=== PATIENT | female | born 1955 | race Caucasian/White ===

== ENCOUNTER → 2018-01-06 14:17 | Outpatient (CLI) | payer OTHER, SELFPAY ==
--- NOTE | 2018-01-06 15:15 | NEURO ---
NCS and/or EMG Patient Report Ordering Doctor: Joo Watkins DATE OF SERVICE: 01/06/18 Shila Braga is a 62-year-old female presents for electrodiagnostic dusting of the right upper limb. She has chief complaint of numbness and tingling in the right hand. [place] diagnostic findings: Right median motor nerve demonstrates prolonged distal latency with normal amplitude and conduction velocity. Normal right ulnar motor response normal median and ulnar f wave. Prolonged right median sensory latency at the wrist. Prolonged right median palmar latency. On needle EMG, all muscles tested in the right upper limb show no evidence of denervation with normal motor unit action potentials. Electrodiagnostic assessment: This is a abnormal study 1. Electrodiagnostic findings demonstrate right-sided median mononeuropathy. This is consistent with a moderate right carpal tunnel syndrome. If there are any further questions, please not hesitate to contact me
== END ==
PROVIDERS: Family Provider Family Medicine; PCP Family Medicine; Visit Provider Physician Assistant
DX: R20.2 Paresthesia of skin (principal)
CPT/HCPCS: 95886; 95909

== ENCOUNTER 2018-01-27 11:30 | Outpatient (RCR) | payer OTHER, SELFPAY ==
--- NOTE | 2018-01-20 10:46 | HP.OTEVAL_ITS ---
Patient's Visit Information BEV BOLAÑOS is a 62 year old F, referred to Occupational Therapy by Grabiel Lloyd, with a diagnosis of Right CTS. Date of Evaluation: 01/20/18 Occupational Therapist: Aleshia Jimenez, MORGAN/Johan, CHT - Subjective Subjective: PT attends OT eval with dx of right CTS. pt states symptoms of pain and numbness has come and gone for about 8 years. PT states she is now wearing a brace at night. pt is employed in [employer] and is in front of the computer most of the time. Pt states dr. lawton put her on a anti-inflamitory medication for about a week . Pt has had a nerve conduction test result with mild CTS. - Pain right wrist 4 Pain Intensity Range: 0, 4 - ROM Elbow: Right/ left WNL Forearm: right/left WNL Wrist: right 65/65 left 65 60 - Strength Manufacturing Sales Representative: right 45# left 40# Lateral Pinch: right 8# left 8# Tripod Pinch: right 6# left 6# - Special Tests Phalen's (Carpal Tunnel): positive - Carpal Tunnel Syndrome Total Score of Symptom & Functional Sections: 24 - Goals Goal:: pt will report pain no greater than 1/10 with use of right UE with BADLs and IADLS by d/c Goal:: pt will demo understanding of work station ergo. and make two changes to her work station to decrease symptoms of CTS to less than 1 flair up a week by d /c Goal:: pt will demo the ability to demo good sitting posture for greater than 30 min by d/c - Rehabilitation General Assessment: pt demo with positive right CTS. pts pain and symptoms of tingling/numbness limit pts ability to sleep at night and hold/lift objects. pt demo need for skilled OT services 1x week for 3 weeks to ed. on Median N glides , posture and work station ergo and strengthen UB. Rehabilitation Potential: Excellent - Anticipated Interventions Anticipated Interventions: Strengthening, Triggerpoint Release, Modalities, Orthoses, Ergonomic Education - Visit Plan Frequency: 1x/Week Duration: 3 Weeks General Plan: review Median N glide- posture ex. initiate t-band row ex to increase posture support. review work station erg. and use of wrist brace. TEXT: Thank you for the opportunity to evaluate your patient. For Medicare and Medicare HMO plans, please review the plan of care and approve it. It will need to be FAXED BACK to us at [phone] for Medicare purposes. Please let me know if there are questions or concerns regarding this plan of care. Physician Signature: Date:
--- NOTE | 2018-01-27 11:52 | HP.OTDCSUM_ITS ---
HP - OT D/C Summary It has been my pleasure to treat BEV BOLAÑOS under orders from Grabiel Lloyd, for the diagnosis of Right CTS for a total of 2 visit(s). Please see the following information for a summary of their discharge status. - Overall Improvement % Improvement: 80 - Objective Objective/Function: pt demo understanding of posture and relation to CTS, pt demo median N. glide, use of wrist braces and T-band scapular strengthening. - Goals Patient Goals: Regain Strength, Use Hand/Wrist/Arm Normally Again, Sleep Better , Decrease Tingling/Numbness, Be More Independent in ADLS Goal:: pt will report pain no greater than 1/10 with use of right UE with BADLs and IADLS by d/c Goal:: pt will demo understanding of work station ergo. and make two changes to her work station to decrease symptoms of CTS to less than 1 flair up a week by d /c Goal:: pt will demo the ability to demo good sitting posture for greater than 30 min by d/c - Plan Plan: D/C with HEP - D/C Information Discharge Comments: pt was seen for 2 OT sessions. pts use of her wrist brace has decreased her CTS and pain. pt demo understanding of posture and work station ergo. pt also demo understanding of PRE with t-band for scapula strengthening. pt agree with POC with HEP. pt d/c at this time. If there are questions or concerns regarding this patient's occupational therapy , please fell free to call me at [phone]. Thank you for the referral of this patient. Sincerely, Aleshia Jimenez, OTR/L, CHT
== END 2018-01-27 19:00 | disposition home or self-care (01) ==
LOC: OT 11:30
PROVIDERS: Family Provider Family Medicine; PCP Family Medicine; Visit Provider Orthopaedic Surgery
DX: G56.01 Carpal tunnel syndrome, right upper limb (principal)
CPT/HCPCS: 97110; 97166

== ENCOUNTER → 2021-02-05 16:51 | Outpatient (CLI) | payer OTHER, SELFPAY ==
[2021-02-05 17:58] LABS: Hematocrit 41.4 % (37-47); Hemoglobin 14.2 g/dL (12.0-15.0); Mean Corp Hgb Conc 34.3 g/dL (32-36); Mean Corpuscular Hgb 29.7 pg (27.0-32.0); Mean Corpuscular Volume 86.6 fL (81-99); Mean Platelet Vol. 12.7 fl (6.2-12.0); Platelet Count 228 K/mm3 (150-450); RBC Distribution Width CV 12.2 % (11.6-14.6); RBC Distribution Width SD 38.8 fl (35.1-43.9); Red Blood Count 4.78 M/mm3 (4.2-5.4); White Blood Count 7.6 K/mm3 (4.4-11.0)
[2021-02-05 18:23] LABS: Anion Gap 8 (5-15); BUN 21 mg/dL (7-18); BUN/Creat Ratio 31.9 RATIO (10-20); Calcium,Total 9.4 mg/dL (8.5-10.1); Chloride 104 mmol/L (98-107); Cholesterol 253 mg/dL (200); Creatinine, Serum 0.66 mg/dL (0.55-1.02); EST Glomerular Filtration Rate 96 mL/min (>60); Est Glom Filt Rate - Afr Amer 116 mL/min (>60); Glucose 128 mg/dL (74-106); High Density Lipoprotein 44 mg/dL; Potassium 3.6 mmol/L (3.5-5.1); Sodium Level 137 mmol/L (136-145); Thyroid Stim Hormone (TSH) 1.52 uIU/mL (0.358-3.74); Triglycerides 310 mg/dL; Very Low Density Lipoprotein 62 mg/dL (5-40)
[2021-02-05 18:32] LABS: Microalbumin,Random Urine 22.2 mg/L (NO RANGE EST.)
== END ==
PROVIDERS: PCP Family Medicine; Referring Provider Family Medicine; Visit Provider Family Medicine
DX: E11.9 Type 2 diabetes mellitus without complications (principal)
CPT/HCPCS: 36415; 80048; 80061; 82043; 84443; 85027

== ENCOUNTER 2021-06-19 08:42 | Outpatient (CLI) | payer OTHER, SELFPAY ==
[2021-06-19 11:03] LABS: ALB/GLOB Ratio 0.8 RATIO (0.9-2.4); AST(SGOT) 34 U/L (15-37); Alanine Aminotransfer ALT/SGPT 60 U/L (13-56); Albumin, Serum 3.8 g/dL (3.2-5.0); Alkaline Phosphatase 102 U/L (45-117); Anion Gap 9 (5-15); BUN 15 mg/dL (7-18); BUN/Creat Ratio 18.3 RATIO (10-20); Calcium,Total 10.1 mg/dL (8.5-10.1); Chloride 106 mmol/L (98-107); Cholesterol 152 mg/dL (200); Creatinine, Serum 0.82 mg/dL (0.55-1.02); EST Glomerular Filtration Rate 75 mL/min (>60); Est Glom Filt Rate - Afr Amer 90 mL/min (>60); Globulin 4.6 g/dL (2.2-4.2); Glucose 120 mg/dL (74-106); High Density Lipoprotein 49 mg/dL; Potassium 4.2 mmol/L (3.5-5.1); Protein, Total 8.4 g/dL (6.4-8.2); Sodium Level 138 mmol/L (136-145); Triglycerides 156 mg/dL; Very Low Density Lipoprotein 31 mg/dL (5-40)
== END 2021-06-19 23:59 | disposition short-term general hospital (02) ==
LOC: MTLAB 08:43
PROVIDERS: PCP Family Medicine; Referring Provider Family Medicine; Visit Provider Family Medicine
DX: E11.9 Type 2 diabetes mellitus without complications (principal)
CPT/HCPCS: 36415; 80053; 80061

== ENCOUNTER 2021-07-22 07:41 | Day surgery (SDC) | payer OTHER, SELFPAY ==
[2021-07-04 12:25] LABS: Hematocrit 44.6 % (37-47); Hemoglobin 15.1 g/dL (12.0-15.0); Mean Corp Hgb Conc 33.9 g/dL (32-36); Mean Corpuscular Hgb 30.1 pg (27.0-32.0); Mean Platelet Vol. 12.2 fl (6.2-12.0); Platelet Count 235 K/mm3 (150-450); RBC Distribution Width CV 12.1 % (11.6-14.6); RBC Distribution Width SD 39.1 fl (35.1-43.9); Red Blood Count 5.01 M/mm3 (4.2-5.4)
[2021-07-04 12:49] LABS: Anion Gap 8 (5-15); BUN 13 mg/dL (7-18); BUN/Creat Ratio 14.6 RATIO (10-20); Calcium,Total 9.7 mg/dL (8.5-10.1); Chloride 103 mmol/L (98-107); Creatinine, Serum 0.89 mg/dL (0.55-1.02); EST Glomerular Filtration Rate 68 mL/min (>60); Est Glom Filt Rate - Afr Amer 82 mL/min (>60); Glucose 122 mg/dL (74-106); Potassium 4.1 mmol/L (3.5-5.1); Sodium Level 139 mmol/L (136-145)
[2021-07-05 11:00] LABS: Hemoglobin A1c 6.2 % (3.8-5.6)
--- NOTE | 2021-07-11 14:01 | EKG12_ITS ---
Test Reason : PREOP Blood Pressure : / mmHG Vent. Rate : 087 BPM Atrial Rate : 087 BPM P-R Int : 156 ms QRS Dur : 064 ms QT Int : 366 ms P-R-T Axes : 018 -06 066 degrees QTc Int : 440 ms Normal sinus rhythm Normal ECG Confirmed by EVANGELIST SANCHEZ, YANDY ([id number]), research editor CARLOS MORA ([id number]) on 07/12/2021 8:27:55 AM Referred By: Grabiel Lloyd Confirmed By:YANDY BLANCA MD
[2021-07-22 08:41] VITALS: BP 176/97; PULSE 80; RESP 16; TEMP 36.4; O2SAT 100; BMI 27.3
[2021-07-22] MEDS: Lactated Ringers 1,000 ML 15 ML IV (08:49)
[2021-07-22 08:55] LABS: Bedside Glucose 148 mg/dL (70-110)
[2021-07-22] MEDS: Cefazolin 2 GM in 0.9% Normal Saline 100 ML IV (09:45)
[2021-07-22] MEDS: Epinephrine (1 mg/ml) 1 MG/ML VIAL (11:00)
[2021-07-22] MEDS: Lidocaine 1% /Epi 1:100 (50ml) 50 ML VIAL (11:00)
--- NOTE | 2021-07-22 11:21 | OP.PCM_ITS ---
Report of Operation Date of Procedure: 07/22/21 Pre-Operative Diagnosis: SAIS, AC arthrosis, Labral tear and rotator cuff tear left shoulder Post-Operative Diagnosis: same with Type IIa, non-displaced SLAP tear Surgery/Procedure Performed:: Diagnostic and operative arthroscopy left shoulder with JAREK, Richard procedure, intra-articular debridement and rotator cuff repair Surgeon: Grabiel Lloyd at risk specialist: Joo Watkins Type of Anesthesia: General/Regional Anesthesiologist: Mac Fajardo Estimated Blood Loss (mL): 5 cc Fluids Replaced: 1000 cc crystalloid Admit VTE Documentation VTE Present on Admission: No VTE Mechan Device Prophylaxis: SCD's and Thigh High CODIE Hose Reason prophylaxis not ordered:: Treatment Not Indicated
[2021-07-22 11:33] VITALS: BP 139/77; BP 176/97; PULSE 90; RESP 16; TEMP 36.1; O2SAT 93
[2021-07-22 11:45] VITALS: BP 142/72; BP 176/97; PULSE 86; RESP 16; O2SAT 93
[2021-07-22] MEDS: Ketorolac 15 MG/ML Vial IV (11:53)
[2021-07-22 12:00] VITALS: BP 141/76; BP 176/97; PULSE 77; RESP 16; O2SAT 93
[2021-07-22 12:15] VITALS: BP 143/73; BP 176/97; PULSE 77; RESP 16; TEMP 36.4; O2SAT 93
[2021-07-22 12:31] LABS: Bedside Glucose 222 mg/dL (70-110)
[2021-07-22 13:36] VITALS: BP 122/72; BP 176/97; PULSE 72; RESP 16; TEMP 36.2; O2SAT 98
== END 2021-07-22 23:59 | disposition home or self-care (01) ==
LOC: SDC 07:42 → AC 07:42
PROVIDERS: PCP Family Medicine; Referring Provider Orthopaedic Surgery; Visit Provider Orthopaedic Surgery
PROC: (CPT 29827; principal; 2021-07-22 09:10)
DX: S46.012A Strain of muscle(s) and tendon(s) of the rotator cuff of left shoulder, initial encounter (principal); E11.69 Type 2 diabetes mellitus with other specified complication; S43.432A Superior glenoid labrum lesion of left shoulder, initial encounter; M75.102 Unspecified rotator cuff tear or rupture of left shoulder, not specified as traumatic; M19.012 Primary osteoarthritis, left shoulder; Y93.9 Activity, unspecified; Y99.9 Unspecified external cause status; W19.XXXA Unspecified fall, initial encounter; Y92.9 Unspecified place or not applicable; Z79.84 Long term (current) use of oral hypoglycemic drugs; E78.00 Pure hypercholesterolemia, unspecified; Z79.899 Other long term (current) drug therapy
CPT/HCPCS: 29827; 29826; 29824; 01630; 64415; 36415; 80048; 82962; 83036; 85027; 93005; 97161; J7120

== ENCOUNTER 2021-10-24 11:00 | Outpatient (RCR) | payer OTHER, SELFPAY ==
--- NOTE | 2021-07-29 12:08 | HP.PTEVAL ---
Patient's Visit Information BEV BOLAÑOS is a 65 year old F referred to Physical Therapy by Joo Watkins PA-C with a diagnosis of L rotator cuff repair. Date of Evaluation: 07/29/21 Physical Therapist: Oscar Adame, PT, ATC - Visit Plan Frequency: 2-3x /Week Duration: 4-6 Weeks Plan: L shoulder PROM and mobilizations for 4-6 weeks. Will progress to phase 2 at that time. MH and CP for pain - Subjective DOS: 07/22/21. Pt had L rotator cuff repair performed at that time. Pt reports she tripped at home and landed on her L shoulder which resulted in a tear. Pt reports she is still in a lot of pain at this time. Pt reports she is able to sleep at night as long az she sleeps in her recliner and takes pain meds. Pt is R hand dominant. Pt works at the [employer] of the [employer]. Pt reports no tingling or numbness in L UE at this time. Pt denies any PMHx of L shoulder complications prior to this episode. Pt reports she has been performing a HEP of L elbow AROM. Pt reports she was told she would get more ex's when she went to PT. 3/10 pain while sitting her in the clinic at rest with meds, 5/10 pain at worst. - Pain L shoulder Pain Intensity (Out of 10): 3 Pain Intensity Range: 5 - Objective Neuro: B UE sensation is WNL to light touch. B bicepital reflex. Observation: Incisions are healing well. Still covered with gauze. No signs of infection at this time. ROM: R shoulder AROM: flex= 140, abd= 140, ER= 50, IR WNL; L shoulder PROM flex= 50, abd= 50. MMT: R shoulder is 5/5 throughout. L shoulder not assessed today - Balance/Special Test Scores Quick DASH Score: 79.5450 - Goals Goal 1:: Decrease L shoulder pain x 50% to aid with sleep Goal Time Frame: 4-6 Weeks Goal 2:: Increase L shoulder abd and flex ROM x 50 degrees to aid with IADL's Goal Time Frame: 4-6 Weeks Goal 3:: Increase L shoulder strength to 4/5 to aid with return to work without limitation Goal Time Frame: 8-12 Weeks Goal 4:: I with HEP Goal Time Frame: 4-6 Weeks - Rehabilitation Potential Physical Therapy Diagnosis: Pt has L shoulder pain, weakness, and limited ROM secondary to L rotator cuff repair. Rehabilitation Potential: Good - Anticipated Interventions Patient/Client Instruction: Educate patient on: Condition, Plan of Care For the Purpose of:: To improve self management Therapeutic Exercise to Include: Strength training, Flexibilty training, Passive ROM, Active ROM, Scapular Strength/Stabilization For the Purpose of:: To decrease pain, To increase ROM, To improve muscle performance and motor function Cryotherapy (ice pack, ice massage): Yes Thermo therapy (hot pack): Yes For the Purpose of:: To decrease pain Thank you for the opportunity to evaluate your patient. For Medicare and Medicare HMO plans, please review the plan of care and approve it. It will need to be FAXED BACK to us at [phone] for Medicare purposes. For Medicare only, by signing this I certify the plan of care. Please let me know if there are questions or concerns regarding this plan of care. Physician Signature: Date:
--- NOTE | 2021-09-12 11:17 | HP.PTREVAL ---
Joo Watkins PA-C, It has been my pleasure to treat BEV BOLAÑOS over the last 14 visits for L rotator cuff repair. Please see the progress note below for an update on the physical therapy plan of care! Subjective: No pain today. I am really stiff for some reason Objective/Function: L shoulder pain is currently 0/10, 4/10 at worst. L shoulder ROM: flex= 110, abd= 82 degrees. L shoulder MMT: L shoulder is grossly 3-/5 throughout; flex= 3.4, abd= 8.6, ER= 7.2, IR= 9.7 #F. Pt is progressing well towards Rx goals Plan Plan: Begin light isometric ex's per doctors request. Cont with phase 2 ex's focusing on ROM at this time. Begin strengthening in 3-4 weeks. Balance/Gait/Functional tests - Balance/Special Test Scores Quick DASH Score: 22.7250 Goals Goal 1:: Decrease L shoulder pain x 50% to aid with sleep Goal Time Frame: 4-6 Weeks Goal Progress: Progressing Goal 2:: Increase L shoulder abd and flex ROM x 50 degrees to aid with IADL's Goal Time Frame: 4-6 Weeks Goal Progress: Progressing Goal 3:: Increase L shoulder strength to 4/5 to aid with return to work without limitation Goal Time Frame: 8-12 Weeks Goal Progress: Progressing Goal 4:: I with HEP Goal Time Frame: 4-6 Weeks Goal Progress: Progressing Anticipated Interventions Patient/Client Instruction: Educate patient on: Condition, Plan of Care For the Purpose of:: To improve self management Therapeutic Exercise to Include: Strength training, Flexibilty training, Passive ROM, Active ROM, Scapular Strength/Stabilization For the Purpose of:: To decrease pain, To increase ROM, To improve muscle performance and motor function Cryotherapy (ice pack, ice massage): Yes Thermo therapy (hot pack): Yes For the Purpose of:: To decrease pain Please do not hesitate to contact me at [phone] by phone or if you have questions or concerns regarding this new plan of care! Sincerely, Oscar Adame, PT, ATC
--- NOTE | 2021-10-24 11:20 | HP.PTDCSUM ---
It has been my pleasure to treat BEV BOLAÑOS referred by Joo Watkins PA-C, with the diagnosis of L rotator cuff repair 07/22/21 for a total of 26 visit(s). Discharge Date: Please see the following information for a summary of their discharge status. Subjective: I feel like I am ready to be done L shoulder Pain Intensity (Out of 10): 0 % Improvement: 90 Objective/Function: L shoulder pain 0/10 currently. L shoulder MMT: 4/5 throughout with the exception to IR 5/5. flex= 8, abd= 14, ER= 14, IR= 15 #F. L shoulder ROM: flex= 150, abd= 120. Pt is I with HEP. Rx goals achieved Goal 1:: Decrease L shoulder pain x 50% to aid with sleep Goal Progress: Goal Met Goal 2:: Increase L shoulder abd and flex ROM x 50 degrees to aid with IADL's Goal Progress: Goal Met Goal 3:: Increase L shoulder strength to 4/5 to aid with return to work without limitation Goal Progress: Goal Met Goal 4:: I with HEP Goal Progress: Goal Met Plan: Discharge to HEP If there are questions or concerns regarding this patient's physical therapy, please feel free to call me at [phone]. Thank you for the referral of this patient. Sincerely, Oscar Adame, PT, ATC Balance/Gait/Functional tests - Balance/Special Test Scores Quick DASH Score: 6.8175
== END 2021-10-24 19:00 | disposition home or self-care (01) ==
LOC: PT 11:00
PROVIDERS: PCP Family Medicine; Referring Provider Physician Assistant; Visit Provider Physician Assistant
DX: S46.012A Strain of muscle(s) and tendon(s) of the rotator cuff of left shoulder, initial encounter (principal)
CPT/HCPCS: 97110; 97140; 97161; 97164; 97530

== ENCOUNTER → 2022-07-02 | Outpatient (CLI) | payer OTHER, SELFPAY ==
[2022-07-02 12:44] LABS: Anion Gap 9 (5-15); BUN 14 mg/dL (7-18); BUN/Creat Ratio 17.2 RATIO (10-20); Calcium,Total 9.2 mg/dL (8.5-10.1); Chloride 107 mmol/L (98-107); Creatinine, Serum 0.81 mg/dL (0.55-1.02); EST Glomerular Filtration Rate 75 mL/min (>60); Est Glom Filt Rate - Afr Amer 91 mL/min (>60); Glucose 137 mg/dL (74-106); Potassium 4.1 mmol/L (3.5-5.1); Sodium Level 141 mmol/L (136-145)
[2022-07-02 13:04] LABS: Microalbumin,Random Urine 5.6 mg/L (NO RANGE EST.); Microalbumin:Creatinine Ratio 16.9 mg/g CRE (<30 mg/g CRE)
== END | disposition home or self-care (01) ==
LOC: MTLAB 10:29
PROVIDERS: PCP Family Medicine; Referring Provider Family Medicine; Visit Provider Family Medicine
DX: E11.9 Type 2 diabetes mellitus without complications (principal)
CPT/HCPCS: 36415; 80048; 82043; 82570

== ENCOUNTER → 2023-09-07 | Outpatient (CLI) | payer MEDICARE, SELFPAY ==
[2023-09-07 18:09] LABS: Hemoglobin A1c 6.7 % (3.8-5.6)
[2023-09-07 18:11] LABS: Microalbumin,Random Urine 42.9 mg/L (NO RANGE EST.); Microalbumin:Creatinine Ratio 179.5 mg/g CRE (<30 mg/g CRE)
[2023-09-07 18:18] LABS: ALB/GLOB Ratio 0.9 RATIO (0.9-2.4); AST(SGOT) 58 U/L (15-37); Alanine Aminotransfer ALT/SGPT 77 U/L (13-56); Albumin, Serum 3.9 g/dL (3.2-5.0); Alkaline Phosphatase 94 U/L (45-117); Anion Gap 8 (5-15); BUN 15 mg/dL (7-18); BUN/Creat Ratio 18.2 RATIO (10-20); Chloride 107 mmol/L (98-107); Cholesterol 191 mg/dL (200); Creatinine, Serum 0.83 mg/dL (0.55-1.02); EST Glomerular Filtration Rate 74 mL/min (>60); Est Glom Filt Rate - Afr Amer 89 mL/min (>60); Globulin 4.2 g/dL (2.2-4.2); Glucose 115 mg/dL (74-106); High Density Lipoprotein 46 mg/dL; Potassium 3.7 mmol/L (3.5-5.1); Protein, Total 8.1 g/dL (6.4-8.2); Sodium Level 139 mmol/L (136-145); Triglycerides 124 mg/dL; Very Low Density Lipoprotein 25 mg/dL (5-40)
== END | disposition home or self-care (01) ==
PROVIDERS: PCP Family Medicine; Referring Provider Family Medicine; Visit Provider Family Medicine
DX: E11.9 Type 2 diabetes mellitus without complications (principal)
CPT/HCPCS: 36415; 80053; 80061; 82043; 82570; 83036

== ENCOUNTER → 2023-12-07 | Outpatient (CLI) | payer MEDICARE, SELFPAY ==
[2023-12-07 13:27] LABS: Anion Gap 11 (5-15); BUN 16 mg/dL (7-18); BUN/Creat Ratio 18.3 RATIO (10-20); Calcium,Total 9.8 mg/dL (8.5-10.1); Chloride 102 mmol/L (98-107); Cholesterol 129 mg/dL (200); Creatinine, Serum 0.88 mg/dL (0.55-1.02); EST Glomerular Filtration Rate 69 mL/min (>60); Est Glom Filt Rate - Afr Amer 83 mL/min (>60); Glucose 145 mg/dL (74-106); High Density Lipoprotein 46 mg/dL; Potassium 4.1 mmol/L (3.5-5.1); Sodium Level 137 mmol/L (136-145); Triglycerides 119 mg/dL; Very Low Density Lipoprotein 24 mg/dL (5-40)
== END | disposition home or self-care (01) ==
PROVIDERS: PCP Family Medicine; Referring Provider Family Medicine; Visit Provider Family Medicine
DX: E11.9 Type 2 diabetes mellitus without complications (principal)
CPT/HCPCS: 36415; 80048; 80061

== ENCOUNTER → 2024-05-27 | Outpatient (CLI) | payer MEDICARE, SELFPAY ==
[2024-05-27 10:55] LABS: ALB/GLOB Ratio 0.8 RATIO (0.9-2.4); AST(SGOT) 38 U/L (15-37); Alanine Aminotransfer ALT/SGPT 52 U/L (13-56); Albumin, Serum 3.7 g/dL (3.2-5.0); Alkaline Phosphatase 72 U/L (45-117); Anion Gap 8 (5-15); BUN 23 mg/dL (7-18); BUN/Creat Ratio 21.1 RATIO (10-20); Calcium,Total 9.4 mg/dL (8.5-10.1); Chloride 105 mmol/L (98-107); Cholesterol 145 mg/dL (200); Creatinine, Serum 1.09 mg/dL (0.55-1.02); EST Glomerular Filtration Rate 53 mL/min (>60); Est Glom Filt Rate - Afr Amer 65 mL/min (>60); Globulin 4.4 g/dL (2.2-4.2); Glucose 143 mg/dL (74-106); High Density Lipoprotein 53 mg/dL; Potassium 4.1 mmol/L (3.5-5.1); Protein, Total 8.1 g/dL (6.4-8.2); Sodium Level 139 mmol/L (136-145); Triglycerides 159 mg/dL; Very Low Density Lipoprotein 32 mg/dL (5-40)
[2024-05-27 11:14] LABS: Hemoglobin A1c 7.1 % (3.8-5.6)
== END | disposition home or self-care (01) ==
LOC: MTLAB 09:22
PROVIDERS: PCP Family Medicine; Referring Provider Family Medicine; Visit Provider Family Medicine
DX: E11.9 Type 2 diabetes mellitus without complications (principal)
CPT/HCPCS: 36415; 80053; 80061; 83036

== ENCOUNTER → 2024-12-22 | Outpatient (CLI) | payer MEDICARE, SELFPAY ==
[2024-12-22 11:21] LABS: Creatinine, Urine (random) 132.00 mg/dL (28.00-217.00); Microalbumin,Random Urine 77.2 mg/L (<20 mg/L)
[2024-12-22 13:06] LABS: AST(SGOT) 49 U/L (<=31); Alanine Aminotransfer ALT/SGPT 68 U/L (<=34); Albumin, Serum 4.2 g/dL (3.4-4.8); Alkaline Phosphatase 82 U/L (35-104); Anion Gap 16 (5-15); BUN 18 mg/dL (4-19); BUN/Creat Ratio 18.6 RATIO (10-20); Calcium,Total 10.2 mg/dL (7.6-11.0); Carbon Dioxide 20.4 mmol/L (21.0-32.0); Chloride 102 mmol/L (98-108); Cholesterol 142 mg/dL (<=200); Globulin 3.6 g/dL (2.2-4.2); Glucose 207 mg/dL (70-99); Low Density Lipoprotein Calc. 51 mg/dL; Potassium 4.6 mmol/L (3.3-5.1); Triglycerides 247 mg/dL; Very Low Density Lipoprotein 49 mg/dL (5-40); cholesterol:hdl ratio screen 3.43
== END | disposition home or self-care (01) ==
LOC: MTLAB 09:24
PROVIDERS: PCP Family Medicine; Referring Provider Family Medicine; Visit Provider Family Medicine
DX: E11.9 Type 2 diabetes mellitus without complications (principal)
CPT/HCPCS: 36415; 80053; 80061; 82043; 82570

== ENCOUNTER → 2025-03-20 | Outpatient (CLI) | payer MEDICARE, SELFPAY ==
[2025-03-20 15:42] LABS: AST(SGOT) 43 U/L (<=31); Alanine Aminotransfer ALT/SGPT 53 U/L (<=34); Albumin, Serum 4.3 g/dL (3.4-4.8); Alkaline Phosphatase 76 U/L (35-104); Anion Gap 13 (5-15); BUN 17 mg/dL (4-19); BUN/Creat Ratio 18.0 RATIO (10-20); Calcium,Total 9.9 mg/dL (7.6-11.0); Carbon Dioxide 22.9 mmol/L (21.0-32.0); Chloride 101 mmol/L (98-108); Globulin 3.5 g/dL (2.2-4.2); Glucose 147 mg/dL (70-99); Potassium 4.8 mmol/L (3.3-5.1)
== END | disposition home or self-care (01) ==
LOC: MTLAB 11:31
PROVIDERS: PCP Family Medicine; Referring Provider Family Medicine; Visit Provider Family Medicine
DX: E11.9 Type 2 diabetes mellitus without complications (principal)
CPT/HCPCS: 36415; 80053